=== PATIENT | male | born 2000 | race Caucasian/White ===

== ENCOUNTER 2021-02-01 20:44 | Emergency (ER) | payer OTHER ==
[~2021-02-01] VITALS: Ht 175.3 cm; Wt 70.3 kg
[2021-02-01] MEDS ORDERED: MEDROLDOSEPACK PO (21:47)
[2021-02-01] MEDS ORDERED: PROAIR HFA8.5 GM INH (21:47)
[2021-02-01] MEDS ORDERED: AMOXICILLIN 50500 MG PO (21:47)
[2021-02-01 21:54] VITALS: BP 120/79
== END 2021-02-01 21:54 | disposition home or self-care (01) ==
LOC: M.ERS 20:44
DX: J01.00 Acute maxillary sinusitis, unspecified (principal); Z20.822 Contact with and (suspected) exposure to COVID-19; F17.210 Nicotine dependence, cigarettes, uncomplicated; Z91.030 Bee allergy status

== ENCOUNTER 2021-02-03 22:09 | Emergency (ER) | payer OTHER, MEDICAID ==
[~2021-02-03] VITALS: Ht 175.3 cm; Wt 70.3 kg
[~2021-02-03 22:09] MED LIST: AMOXICILLIN 50500 MG PO; MEDROLDOSEPACK PO; PROAIR HFA8.5 GM INH
[2021-02-03 22:45] LABS: INFLUENZA A ANTIGEN Negative (Negative); INFLUENZA B ANTIGEN Negative (Negative)
[2021-02-03] MEDS ORDERED: AUGMENTIN 875-1 EACH PO (22:56)
[2021-02-03 23:00] VITALS: BP 145/65
== END 2021-02-03 23:01 | disposition home or self-care (01) ==
LOC: M.ERS 22:09
PROVIDERS: Physician Assistant
DX: J01.80 Other acute sinusitis (principal); Z20.822 Contact with and (suspected) exposure to COVID-19; B96.89 Other specified bacterial agents as the cause of diseases classified elsewhere; Z91.030 Bee allergy status

== ENCOUNTER 2021-05-09 19:24 | Emergency (ER) | payer OTHER, MEDICAID ==
[~2021-05-09] VITALS: Ht 180.3 cm; Wt 70.3 kg
[~2021-05-09 19:24] MED LIST changes: +AUGMENTIN 875-1 EACH PO
[2021-05-09 20:18] VITALS: BP 135/87
== END 2021-05-09 20:20 | disposition left against medical advice (07) ==
LOC: M.ERS 19:24
DX: M79.644 Pain in right finger(s) (principal); Z91.030 Bee allergy status